=== PATIENT | female | born 1950 | race Caucasian/White ===

== ENCOUNTER 2017-08-30 08:54 | Emergency (ER) | payer BC ==
[2017-08-30 09:05] VITALS: BP 115/72
--- NOTE | 2017-08-30 10:46 | UC ---
Eye Complaint HPI - HPI Summary HPI Summary: Bilateral itchy red eyes not responding to OTC po allergy meds, no vision changes - History of Current Complaint Chief Complaint: UCEye Stated Complaint: EYE ISSUE Time Seen by Provider: 08/30/17 10:43 Hx Obtained From: Patient ?: No Onset/Duration: Sudden Onset Timing: Constant Severity Initially: Mild Severity Currently: Mild Location of Injury: Conjunctiva Aggravating Factor(s): Nothing Alleviating Factor(s): Nothing Associated Signs And Symptoms: Positive: Drainage (Clear) - Allergies/Home Medications Allergies/Adverse Reactions: Allergies Allergy/AdvReac Type Severity Reaction Status Date / Time Moxifloxacin Allergy Altered Verified 08/30/17 09:01 Mental Status Sulfa Antibiotics Allergy Rash Verified 08/30/17 09:01 Home Medications: Home Medications Cetirizine* [ZyrTEC 10 MG TAB*] 10 mg PO DAILY 08/30/17 [History Confirmed 08/30] PMH/Surg Hx/FS Hx/Imm Hx Previously Healthy: No Cardiovascular History: Hypertension - Surgical History Surgical History: Yes Surgery Procedure, Year, and Place: cholecystectomy - Family History Known Family History: Positive: Unknown - Social History Lives: With Family Alcohol Use: Occasionally Substance Use Type: None Smoking Status (MU): Former Smoker Review of Systems Constitutional: Negative Skin: Negative Eyes: Drainage - clear, Eye Redness ENT: Negative Respiratory: Negative Cardiovascular: Negative Gastrointestinal: Negative Genitourinary: Negative Motor: Negative Neurovascular: Negative Musculoskeletal: Negative Neurological: Negative Psychological: Negative Is Patient Immunocompromised?: No All Other Systems Reviewed And Are Negative: Yes Physical Exam Triage Information Reviewed: Yes Appearance: Well-Appearing, No Pain Distress, Well-Nourished Vital Signs: Initial Vital Signs Temp 98 F 08/30/17 09:02 Pulse 70 08/30/17 09:02 Resp 15 08/30/17 09:02 BP 115/72 08/30/17 09:02 Pulse Ox 99 08/30/17 09:02 Vital Signs Reviewed: Yes Eyes: Positive: Conjunctiva Inflamed, Discharge ENT Exam: Normal ENT: Positive: Normal ENT inspection, Hearing grossly normal. Negative: Trismus , Muffled voice, Hoarse voice Dental Exam: Normal Neck exam: Normal Neck: Positive: Supple, Nontender Respiratory Exam: Normal Respiratory: Positive: No respiratory distress, No accessory muscle use Cardiovascular Exam: Normal Cardiovascular: Positive: Pulses Normal, Brisk Capillary Refill Musculoskeletal Exam: Normal Musculoskeletal: Positive: Strength Intact, ROM Intact, No Edema Neurological Exam: Normal Neurological: Positive: Alert, Muscle Tone Normal Psychological Exam: Normal Skin Exam: Normal Eye Complaint Course/Dx - Course Course Of Treatment: stop visine change to zaditor eye drops continue OTC allergy med - Differential Dx/Diagnosis Provider Diagnoses: Allergic Conjuctivitis (Bilateral) Discharge - Discharge Plan Condition: Stable Disposition: HOME Prescriptions: Ketotifen Fumarate (Ophth) [Zaditor] 0.025 % OP BID PRN #1 sigrid PRN Reason: allergic conjuctivitis Patient Education Materials: Allergies (ED), Conjunctivitis (ED) Referrals: Shae Buckner MD [Primary Care Provider] - If Needed
== END 2017-08-30 10:56 | disposition home or self-care (01) ==
LOC: UCEAST 08:54
DX: H10.13 Acute atopic conjunctivitis, bilateral (principal); I10 Essential (primary) hypertension; Z90.49 Acquired absence of other specified parts of digestive tract; Z88.1 Allergy status to other antibiotic agents; Z88.2 Allergy status to sulfonamides; Z87.891 Personal history of nicotine dependence
CPT/HCPCS: 99212; G0463